=== PATIENT | female | born 1970 | race Two or more races ===

== ENCOUNTER 2024-12-16 15:11 | Emergency (ER) | payer SELFPAY ==
[~2024-12-16] VITALS: Ht 160 cm; Wt 70.2 kg
--- NOTE | 2024-12-16 15:33 | ED.PDOC ---
Jesse. trauma (HPI) HPI Comments 54 y.o female presents to the ED for a chief complaint of right arm and left knee pain s/p mechanical fall today. Patient reports sticking her arms out before falling, landed on her right arm and hit her left knee in the process. Patient now presents with limited ROM to whole right arm and pain is worse on palpation to her forearm region. She denies any head injuries, LOC, dizziness and has no open wounds. Chief Complaint: Fall Injury Time Seen by MD: 15:26 Primary Care Provider: none Reviewed notes: Nurses Notes, Medications, Allergies Allergies: Coded Allergies: NO KNOWN ALLERGIES (Unverified , 12/16/24) Home Meds Active Scripts Ibuprofen Micronized (MOTRIN TABLET) 600 Mg Tb, 600 MG PO TID PRN for 3 Days, #9 TAB *Black box warning-NSAIDS can increase risk of SD & hypertension, GI irritation, ulceration, bleed, perferation. Do not use post cardiac surgery. Use short duration/lowest effective dose. 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 History Family History Family History: Reviewed,noncontributory to illness Social History Smoker: Non-Smoker Alcohol: Denies ETOH Use Drugs: Denies Drug Use Lives In: Home Constitutional: denies: chills, diaphoresis, fatigue, fever, malaise, sweats, weakness, others EENTM: denies: blurred vision, double vision, ear bleeding, ear discharge, ear drainage, ear pain, ear ringing, eye pain, eye redness, hearing loss, mouth pain, mouth swelling, nasal discharge, nose bleeding, nose congestion, nose pain, photophobia, tearing, throat pain, throat swelling, voice changes, others Respiratory: denies: cough, hemoptysis, orthopnea, SOB at rest, shortness of breath, SOB with excertion, stridor, wheezing, others Cardiovascular: denies: chest pain, dizzy spells, diaphoresis, Dyspnea on exertion, edema, irregular heart beat, left arm pain, lightheadedness, palpitations, PND, syncope, others Gastrointestinal: denies: abdomen distended, abdominal pain, blood streaked bowels, constipated, diarrhea, dysphagia, difficulty swallowing, hematemesis, melena, nausea, poor appetite, poor fluid intake, rectal bleeding, rectal pain, vomiting, others Genitourinary: denies: abnormal vagina bleeding, burning, dyspareunia, dysuria, flank pain, frequency, hematuria, incontinence, pain, , vagina discharge, urgency, others Neurological: denies: dizziness, fainting, headache, left sided numbness, left sided weakness, numbness, paresthesia, pre-existing deficit, right sided numbness, right sided weakness, seizure, speech problems, tingling, tremors, weakness, others Musculoskeletal: reports: others (right arm and left knee pain ); denies: back pain, gout, joint pain, joint swelling, muscle pain, muscle stiffness, neck pain Integumetry: denies: bruises, change in color, change in hair/nails, dryness, laceration, lesions, lumps, rash, wounds, others Allergic/Immunocompromised: denies: Difficulty Healing, Frequent Infections, Hives, Itching, others Hematologic/Lymphatic: denies: anemia, blood clots, easy bleeding, easy bruising, swollen glands, others Endocrine: denies: excessive hunger, excessive sweating, excessive thirst, excessive urination, flushing, intolerance to cold, intolerance to heat, unexplained weight gain, unexplained weight loss, others Psychiatric: denies: anxiety, bipolar disorder, depression, hopeless, panic disorder, schizophrenia, sleepless, suicidal, others All Other Systems: Reviewed and Negative Physical Exam General Appearance: Moderate Distress HEENT: Normal ENT Inspection, Pharynx Normal, TMs Normal Neck: Full Range of Motion, Non-Tender, Normal, Normal Inspection Respiratory: Chest Non-Tender, Lungs Clear, No Accessory Muscle Use, No Respiratory Distress, Normal Breath Sounds Cardiovascular: No Edema, No JVD, No Murmur, No Gallop, Normal Peripheral Pulses, Regular Rate/Rhythm Breast Exam: Deferred Gastrointestinal: No Organomegaly, Non Tender, No Pulsatile Mass, Normal Bowel Sounds, Soft Genitalia: Deferred Pelvic: Deferred Rectal: Deferred Extremities: Tender (Right elbow) Musculoskeletal : Apperance: Normal Neurologic: Alert, street engineer II-XII nml as Tested, No Motor Deficits, Normal Affect, Normal Mood, No Sensory Deficits Cerebellar Function: Normal Reflexes: Normal Skin: Dry, Normal Color, Warm Peripheral Pulses: 3+ Radial (R), 3+ Radial (L) Lymphatic: No Adenopathy Was a procedure done? Was a procedure done?: No Differential Diagnosis Multiple Trauma: Fractures, Other (Sprain, strain, dislocation ) X-Ray, Labs, Meds, VS Vital Signs Date Time Temp Pulse Resp B/P (MAP) Pulse Ox O2 Delivery O2 Flow Rate FiO2 12/16/24 16:43 97.8 84 19 148/92 (110) 98 97.8 12/16/24 16:35 84 14 94 Room Air* 0 21 12/16/24 15:48 76 18 146/81 (102) 98 12/16/24 15:48 80 18 98 Room Air 12/16/24 15:13 98.3 95 17 144/85 (104) 100 98.3 Current Medications Medications (Trade) Dose Ordered Sig/Susie Route Start Time Stop Time Status Last Admin Acetaminophen/ Hydrocodone Bitart ([place] 10/325MG Tab) 1 tab ONCE ONCE PO 12/16/24 16:30 12/16/24 16:31 DC 12/16/24 16:38 Patient alert. Complaining of right elbow pain. Vitals stable. Answering questions. Ambulating. Has good muscle strength. She is tender to palpation in the right elbow. Kris wrap. Was given pain medication. X-ray of the elbow does not show any acute process. X-ray of the humerus does not show any acute process. X-ray of the knee does not show any acute process. Reviewed her history. Explained to the patient. Continue cardiac monitoring. Satisfied with the treatment plan. Placed in his sling. Was told to follow up with her primary care physician. Was told to come back if there is any problem. Time of 1ST Reevaluation: 15:32 Reevaluation 1ST: Unchanged Time of 2ND Reevaluation: 17:04 Reevaluation 2ND: Improved Patient Education/Counseling: Diagnosis, Treatment, Prognosis Family Education/Counseling: No Family Present Departure 1 Departure Time of Disposition: 16:19 Impression: Primary Impression: Musculoskeletal pain Disposition: 01 HOME / SELF CARE / HOMELESS Condition: Good e-Prescriptions Ibuprofen Micronized (MOTRIN TABLET) 600 Mg Tb 600 MG PO TID PRN for 3 Days, #9 TAB *Black box warning-NSAIDS can increase risk of SD & hypertension, GI irritation, ulceration, bleed, perferation. Do not use post cardiac surgery. Use short duration/lowest effective dose. Prov: GISEL DAY MD 12/16/24 Discharged With: Self Critical Care Note Critical Care Time?: No Stability Stability form required: No I personally scribed for GISEL DAY MD ([email or web address]) on 12/16/24 at 15:33. Electronically submitted by Germaine Awad ([email or web address]). GISEL DAY MD Dec 16, 2024 15:33
[2024-12-16] MEDS ORDERED: IBU600T PO (16:20)
--- NOTE | 2024-12-16 16:21 | DVH ---
CLINICAL INDICATION: fall TECHNIQUE: 2 radiographic views of the right humerus were obtained. Comparison: None FINDINGS/IMPRESSION: There is no evidence of acute fracture or dislocation. The visualized joint space is well maintained. The alignment is anatomical. There is no radiopaque foreign body.
[2024-12-16 16:35] VITALS: PULSE 84; RESP 14; O2SAT 94
[2024-12-16] MEDS: HYDROcodone-ACET 10/325MG TAB PO ONE (16:38)
[2024-12-16 16:43] VITALS: BP 148/92; PULSE 84; RESP 19; TEMP 97.8; O2SAT 98
--- NOTE | 2024-12-16 16:43 | DVH ---
CLINICAL INDICATION: fall TECHNIQUE: 2 radiographic views of the left knee were obtained. Comparison: None FINDINGS/IMPRESSION: There is no evidence of acute fracture or dislocation. The visualized joint space is well maintained. The alignment is anatomical. There is no radiopaque foreign body.
--- NOTE | 2024-12-16 16:44 | DVH ---
CLINICAL INDICATION: fall TECHNIQUE: 2 radiographic views of the right elbow were obtained. Comparison: None FINDINGS/IMPRESSION: There is no evidence of acute fracture or dislocation. The visualized joint space is well maintained. The alignment is anatomical. There is no radiopaque foreign body.
== END 2024-12-16 17:10 | disposition home or self-care (01) ==
LOC: ER 15:28
DX: M25.562 Pain in left knee (principal); M79.601 Pain in right arm; Z79.899 Other long term (current) drug therapy
CPT/HCPCS: 73060; 73070; 73560